=== PATIENT | female | born 1975 | race African-American/Black ===

== ENCOUNTER 2021-12-15 03:05 | Emergency (ER) | payer SELFPAY ==
[2021-12-15] MEDS ORDERED: Furosemide 20 MG Tab PO ONE (03:25)
[2021-12-15] MEDS ORDERED: Metoprolol Tartrate 25 MG Tab PO ONE (03:25)
[2021-12-15] MEDS ORDERED: Famotidine 20 MG/2 ML SDV IVPUSH ONE (03:58)
[2021-12-15] MEDS ORDERED: Alum Hydrox/Mag Hydrox/Simeth 30 ML, Lidocaine 2% 15 ML PO ONE ×2 (03:58)
[2021-12-15] MEDS ORDERED: Magnesium Sulfate/Water 2 GM in Premix Bag 1 BAG IV ONE (04:16)
[2021-12-15] MEDS ORDERED: Ondansetron 4 MG/2 ML SDV IVPUSH ONE (04:18)
[2021-12-15] MEDS ORDERED: Sodium Chloride 0.9% 100 ML IV ONE (05:25)
[2021-12-15] MEDS ORDERED: Iopamidol 755 Mg/ML 100 ML Bottle IVPUSH ONE (05:25)
== END 2021-12-15 07:15 | disposition home or self-care (01) ==
LOC: JD.ED 03:05
DX: R07.89 Other chest pain (principal); I11.0 Hypertensive heart disease with heart failure; I50.9 Heart failure, unspecified; Z79.899 Other long term (current) drug therapy
CPT/HCPCS: 36415; 71045; 71275; 80053; 83735; 84484; 85025; 85379; 85610; 93005; 96365; 96366; 96375; 99285; A9270; J2405; J3475; J3490; Q9967

== ENCOUNTER 2021-12-16 02:21 | Emergency (ER) | payer SELFPAY ==
[2021-12-16] MEDS ORDERED: Ondansetron 4 MG/2 ML SDV IVPUSH ONE (02:55)
[2021-12-16] MEDS ORDERED: Sodium Chloride 0.9% 1,000 ML IV SCH (03:00)
[2021-12-16] MEDS ORDERED: HYDROmorphone 0.5 MG/0.5 ML Syringe IVPUSH ONE ×2 (03:20→05:25)
[2021-12-16] MEDS ORDERED: Alum Hydrox/Mag Hydrox/Simeth 30 ML, Lidocaine 2% 15 ML PO STA ×2 (05:34)
== END 2021-12-16 05:57 | disposition home or self-care (01) ==
LOC: JD.ED 02:21
DX: R07.9 Chest pain, unspecified (principal); R10.9 Unspecified abdominal pain; R11.2 Nausea with vomiting, unspecified; Z20.822 Contact with and (suspected) exposure to COVID-19
CPT/HCPCS: 36415; 71046; 74177; 80053; 83735; 83880; 84484; 85025; 87635; 93005; 96361; 96374; 96375; 96376; 99285; A9270; J1170; J2405; J7030; 93010; 99283; U0002

== ENCOUNTER 2021-12-20 02:45 | Emergency (ER) | payer MEDICAID ==
[2021-12-20] MEDS ORDERED: Hyoscyamine 0.125 MG Tab.SL SL ONE ×2 (03:17→04:24)
[2021-12-20] MEDS ORDERED: Lactated Ringers 1,000 ML IV SCH (03:30)
[2021-12-20] MEDS ORDERED: Metoprolol Tartrate 5 MG/5 ML SDV IVPUSH ONE (03:32)
[2021-12-20] MEDS ORDERED: Metoprolol Tartrate 25 MG Tab PO ONE (05:00)
[2021-12-20] MEDS ORDERED: Morphine 2 MG/ML SYRINGE IVPUSH ONE (06:10)
[2021-12-20] MEDS ORDERED: LORazepam 2 MG/ML SDV IVPUSH ONE (06:19)
== END 2021-12-20 07:45 | disposition home or self-care (01) ==
LOC: JD.ED 02:45
DX: I49.3 Ventricular premature depolarization (principal); R10.33 Periumbilical pain; I11.0 Hypertensive heart disease with heart failure; I50.9 Heart failure, unspecified; Z79.899 Other long term (current) drug therapy
CPT/HCPCS: 36415; 74019; 80053; 84484; 85025; 93005; 96361; 96374; 96375; 99284; A9270; J2060; J3490; J7120

== ENCOUNTER 2021-12-24 16:50 | Emergency (ER) | payer MEDICAID ==
[2021-12-24] MEDS ORDERED: Sodium Chloride 0.9% 10 ML Syringe FLUSH PRN (17:00)
[2021-12-24] MEDS ORDERED: Metoprolol Tartrate 25 MG Tab PO ONE (17:15)
[2021-12-24] MEDS ORDERED: HYDROmorphone 0.5 MG/0.5 ML Syringe IVPUSH ONE (17:18)
[2021-12-24] MEDS ORDERED: Sodium Chloride 0.9% 10 ML Syringe FLUSH ONE (17:54)
[2021-12-24] MEDS ORDERED: Iopamidol 755 Mg/ML 100 ML Bottle IVPUSH ONE (17:54)
[2021-12-24] MEDS ORDERED: Sodium Chloride 0.9% 100 ML IV SCH (18:00)
[2021-12-24 18:09] LABS: ESTIMATED GFR 63 mL/min (>60)
[2021-12-24] MEDS ORDERED: Furosemide 40 MG/4 ML VIAL IVPUSH ONE (18:48)
[2021-12-24] MEDS ORDERED: Doxycycline 100 MG Cap PO ONE (18:48)
[2021-12-24] MEDS ORDERED: Apixaban 5 MG Tab PO ONE (18:48)
== END 2021-12-24 19:50 | disposition home or self-care (01) ==
LOC: JD.ED 16:50
DX: J18.9 Pneumonia, unspecified organism (principal); I26.94 Multiple subsegmental thrombotic pulmonary emboli without acute cor pulmonale; I11.0 Hypertensive heart disease with heart failure; I50.9 Heart failure, unspecified; Z79.01 Long term (current) use of anticoagulants
CPT/HCPCS: 36415; 71045; 71046; 71275; 80053; 83735; 83880; 84484; 85025; 85379; 86140; 93005; 96361; 96374; 96375; 99285; A9270; J1170; J1940; J3490; Q9967; 99284

== ENCOUNTER 2021-12-30 03:23 | Emergency (ER) | payer MEDICAID ==
[2021-12-30] MEDS ORDERED: Sodium Chloride 0.9% 10 ML Syringe FLUSH PRN (03:45)
[2021-12-30] MEDS ORDERED: cefTRIAXone 1 GM in Sodium Chloride 0.9% 100 ML IV ONE (03:47)
[2021-12-30] MEDS ORDERED: Warfarin 5 MG Tab PO ONE (03:47)
[2021-12-30] MEDS ORDERED: Enoxaparin 80 MG/0.8 ML Syringe SUBCUT ONE (03:48)
[2021-12-30] MEDS ORDERED: HYDROmorphone 0.5 MG/0.5 ML Syringe IVPUSH ONE (03:55)
[2021-12-30] MEDS ORDERED: Aspirin 81 MG Tab.Chew PO ONE (03:56)
[2021-12-30 04:20] LABS: ESTIMATED GFR 51 mL/min (>60)
[2021-12-30] MEDS ORDERED: methylPREDNISolone Sodium Succinate 125 MG/2 ML SDV IVPUSH PRN (05:51)
[2021-12-30] MEDS ORDERED: Famotidine 20 MG/2 ML SDV IVPUSH PRN (05:51)
[2021-12-30] MEDS ORDERED: diphenhydrAMINE 50 MG/ML SDV IVPUSH PRN (05:51)
[2021-12-30] MEDS ORDERED: EPINEPHrine 1 MG/ML SDV IM PRN (05:51)
[2021-12-30] MEDS ORDERED: Iron Polysaccharides Complex 150 MG Cap PO ONE (05:52)
[2021-12-30] MEDS ORDERED: Ondansetron 4 MG/2 ML SDV IVPUSH ONE (05:58)
[2021-12-30] MEDS ORDERED: Sodium Chloride 0.9% 10 ML Syringe FLUSH SCH (06:00)
== END 2021-12-30 06:58 | disposition home or self-care (01) ==
LOC: JD.ED 03:23
DX: U07.1 COVID-19 (principal); I26.94 Multiple subsegmental thrombotic pulmonary emboli without acute cor pulmonale; I11.0 Hypertensive heart disease with heart failure; I50.9 Heart failure, unspecified; D50.9 Iron deficiency anemia, unspecified; R11.2 Nausea with vomiting, unspecified; Z79.899 Other long term (current) drug therapy; Z79.01 Long term (current) use of anticoagulants; Z20.822 Contact with and (suspected) exposure to COVID-19
CPT/HCPCS: 36415; 71045; 80053; 82607; 82746; 83540; 83605; 83880; 84466; 84484; 85025; 85610; 86140; 87040; 87635; 93005; 96365; 96372; 96375; 99285; A9270; J0696; J1170; J1650; J2405; J3490; M0222; Q0222; 93010; 99284; U0002

== ENCOUNTER 2022-01-01 01:14 | Emergency (ER) | payer MEDICAID ==
[2022-01-01] MEDS ORDERED: Morphine 2 MG/ML SYRINGE IVPUSH ONE (03:34)
[2022-01-01] MEDS ORDERED: Ondansetron 4 MG/2 ML SDV IVPUSH ONE (03:34)
== END 2022-01-01 06:59 | disposition home or self-care (01) ==
LOC: JD.ED 01:14
DX: I26.94 Multiple subsegmental thrombotic pulmonary emboli without acute cor pulmonale (principal); I11.0 Hypertensive heart disease with heart failure; I50.9 Heart failure, unspecified; Z79.899 Other long term (current) drug therapy; Z79.01 Long term (current) use of anticoagulants
CPT/HCPCS: 36415; 80053; 83690; 84484; 85025; 85610; 93005; 96374; 96375; 99285; J2270; J2405; 93010; 99284

== ENCOUNTER 2022-01-02 02:22 | Emergency (ER) | payer MEDICAID ==
[2022-01-02] MEDS ORDERED: Alum Hydrox/Mag Hydrox/Simeth 30 ML, Lidocaine 2% 15 ML PO ONE ×2 (03:19)
[2022-01-02] MEDS ORDERED: Sucralfate 1 GM Tab PO ONE (04:48)
[2022-01-02] MEDS ORDERED: Pantoprazole 40 MG Tab.CR PO ONE (05:53)
== END 2022-01-02 07:01 | disposition home or self-care (01) ==
LOC: JD.ED 02:22
DX: I26.94 Multiple subsegmental thrombotic pulmonary emboli without acute cor pulmonale (principal); K21.9 Gastro-esophageal reflux disease without esophagitis; I11.0 Hypertensive heart disease with heart failure; I50.9 Heart failure, unspecified; Z79.01 Long term (current) use of anticoagulants; Z79.899 Other long term (current) drug therapy; Z86.16 Personal history of COVID-19
CPT/HCPCS: 36415; 84484; 85610; 93005; 99284; A9270; 93010

== ENCOUNTER 2022-01-04 13:14 | Emergency (ER) | payer MEDICAID ==
[2022-01-04 15:18] LABS: ESTIMATED GFR 51 mL/min (>60)
[2022-01-04] MEDS ORDERED: Acetaminophen/HYDROcodone 325-5 MG Tab PO ONE (15:50)
== END 2022-01-04 16:47 | disposition home or self-care (01) ==
LOC: JD.ED 13:14
DX: R07.89 Other chest pain (principal); R06.00 Dyspnea, unspecified; I11.0 Hypertensive heart disease with heart failure; I50.9 Heart failure, unspecified; Z79.899 Other long term (current) drug therapy; Z79.01 Long term (current) use of anticoagulants; Z86.16 Personal history of COVID-19
CPT/HCPCS: 36415; 71045; 80053; 83735; 83880; 84484; 85025; 85610; 93005; 99285; A9270

== ENCOUNTER 2022-01-05 01:08 | Emergency (ER) | payer MEDICAID ==
[2022-01-05] MEDS ORDERED: Acetaminophen/HYDROcodone 325-5 MG Tab PO STA (01:29)
[2022-01-05] MEDS ORDERED: Ondansetron 4 MG Tab.DIS PO ONE (03:05)
== END 2022-01-05 03:11 | disposition home or self-care (01) ==
LOC: JD.ED 01:08
DX: R07.89 Other chest pain (principal); R06.00 Dyspnea, unspecified; I11.0 Hypertensive heart disease with heart failure; I50.9 Heart failure, unspecified; Z79.899 Other long term (current) drug therapy; Z79.01 Long term (current) use of anticoagulants; Z86.16 Personal history of COVID-19
CPT/HCPCS: 99284; A9270

== ENCOUNTER 2022-01-09 04:13 | Emergency (ER) | payer SELFPAY ==
[2022-01-09 05:43] LABS: ESTIMATED GFR 51 mL/min (>60)
== END 2022-01-09 08:00 | disposition home or self-care (01) ==
LOC: JD.ED 04:13
DX: G89.29 Other chronic pain (principal); R07.89 Other chest pain; R10.9 Unspecified abdominal pain; I11.0 Hypertensive heart disease with heart failure; I50.9 Heart failure, unspecified; Z79.01 Long term (current) use of anticoagulants; Z79.899 Other long term (current) drug therapy; Z86.16 Personal history of COVID-19
CPT/HCPCS: 36415; 71045; 71045-26; 80053; 83690; 83735; 83880; 84484; 85025; 85610; 93005; 99285

== ENCOUNTER 2022-01-09 17:40 | Emergency (ER) | payer MEDICAID ==
[2022-01-09] MEDS ORDERED: Ondansetron 4 MG/2 ML SDV IM STA (21:16)
[2022-01-09] MEDS ORDERED: Furosemide 40 MG Tab PO ONE (22:18)
== END 2022-01-09 22:53 | disposition home or self-care (01) ==
LOC: JD.ED 17:40
DX: R11.2 Nausea with vomiting, unspecified (principal); I11.0 Hypertensive heart disease with heart failure; I50.9 Heart failure, unspecified; Z79.899 Other long term (current) drug therapy; Z79.01 Long term (current) use of anticoagulants; Z86.16 Personal history of COVID-19
CPT/HCPCS: 96372; 99284; A9270; J2405

== ENCOUNTER 2022-01-10 17:12 | Emergency (ER) | payer MEDICAID ==
[2022-01-10] MEDS ORDERED: Furosemide 40 MG Tab PO ONE (21:01)
[2022-01-10] MEDS ORDERED: Nitrofurantoin Monohydrate/Macrocrystalline 100 MG Cap PO STA (23:18)
== END 2022-01-10 23:45 | disposition home or self-care (01) ==
LOC: JD.ED 17:12 → SUPCPDRO 17:12 → JD.ED 23:45
DX: N39.0 Urinary tract infection, site not specified (principal); I11.0 Hypertensive heart disease with heart failure; I50.9 Heart failure, unspecified; Z86.16 Personal history of COVID-19
CPT/HCPCS: 81001; 87086; 99284; A9270

== ENCOUNTER 2022-01-12 00:55 | Emergency (ER) | payer MEDICAID ==
[2022-01-12] MEDS ORDERED: Furosemide 40 MG Tab PO ONE (04:52)
[2022-01-12 05:52] LABS: ESTIMATED GFR 51 mL/min (>60)
[2022-01-12] MEDS ORDERED: Acetaminophen 325 MG Tab PO ONE (06:19)
[2022-01-12] MEDS ORDERED: Ondansetron 4 MG Tab.DIS PO ONE (06:19)
== END 2022-01-12 07:40 | disposition home or self-care (01) ==
LOC: JD.ED 00:55
DX: I26.94 Multiple subsegmental thrombotic pulmonary emboli without acute cor pulmonale (principal); R11.2 Nausea with vomiting, unspecified; I11.0 Hypertensive heart disease with heart failure; I50.9 Heart failure, unspecified; Z79.01 Long term (current) use of anticoagulants; Z79.899 Other long term (current) drug therapy; Z86.16 Personal history of COVID-19
CPT/HCPCS: 36415; 71045; 80053; 83690; 83880; 84484; 85025; 85610; 93005; 99285; A9270

== ENCOUNTER 2022-01-15 14:58 | Emergency (ER) | payer MEDICAID | END 2022-01-15 18:00 | disposition home or self-care (01) | LOC: JD.ED 14:58 | DX: I11.0 Hypertensive heart disease with heart failure (principal); I50.9 Heart failure, unspecified; R07.89 Other chest pain; D50.9 Iron deficiency anemia, unspecified; R10.84 Generalized abdominal pain; Z79.899 Other long term (current) drug therapy | CPT/HCPCS: 36415; 80053; 83690; 83880; 84484; 85025; 93005; 99285 ==

== ENCOUNTER 2022-01-15 23:45 | Emergency (ER) | payer MEDICAID ==
[2022-01-16] MEDS ORDERED: Ondansetron 4 MG Tab.DIS PO ONE (00:40)
[2022-01-16] MEDS ORDERED: Alum Hydrox/Mag Hydrox/Simeth 30 ML, Lidocaine 2% 15 ML PO ONE ×2 (00:40)
== END 2022-01-16 00:58 | disposition home or self-care (01) ==
LOC: JD.ED 23:45
DX: K59.00 Constipation, unspecified (principal); I11.0 Hypertensive heart disease with heart failure; I50.9 Heart failure, unspecified; Z79.01 Long term (current) use of anticoagulants; Z86.16 Personal history of COVID-19
CPT/HCPCS: 99284; A9270

== ENCOUNTER 2022-01-16 22:07 | Emergency (ER) | payer MEDICAID ==
[2022-01-16] MEDS ORDERED: oxyCODONE ER 10 MG TAB.ER PO ONE (23:34)
[2022-01-16 23:37] LABS: ESTIMATED GFR 51 mL/min (>60)
== END 2022-01-17 01:04 | disposition home or self-care (01) ==
LOC: JD.ED 22:07
DX: G89.29 Other chronic pain (principal); R07.81 Pleurodynia; I11.0 Hypertensive heart disease with heart failure; I50.9 Heart failure, unspecified; Z79.01 Long term (current) use of anticoagulants; Z86.16 Personal history of COVID-19
CPT/HCPCS: 36415; 71045; 80053; 83880; 84484; 85025; 85610; 93005; 99285; A9270

== ENCOUNTER 2022-01-18 17:58 | Emergency (ER) | payer MEDICAID ==
[2022-01-18] MEDS ORDERED: Simethicone 80 MG Tab.Chew PO ONE (18:41)
[2022-01-18] MEDS ORDERED: Acetaminophen/Butalbital/Caffeine 325-50-40 MG Tab PO ONE (18:43)
== END 2022-01-18 20:05 | disposition home or self-care (01) ==
LOC: JD.ED 17:58
DX: R14.0 Abdominal distension (gaseous) (principal); I11.0 Hypertensive heart disease with heart failure; I50.9 Heart failure, unspecified; Z86.16 Personal history of COVID-19; Z79.01 Long term (current) use of anticoagulants; Z79.899 Other long term (current) drug therapy
CPT/HCPCS: 74018; 99284; A9270

== ENCOUNTER 2022-01-19 15:53 | Emergency (ER) | payer SELFPAY | END 2022-01-19 17:45 | LOC: JD.ED 15:53 | DX: Z53.21 Procedure and treatment not carried out due to patient leaving prior to being seen by health care provider (principal) ==

== ENCOUNTER 2022-01-22 22:03 | Emergency (ER) | payer MEDICAID ==
[2022-01-22] MEDS ORDERED: Sodium Chloride 0.9% 10 ML Syringe FLUSH PRN (22:59)
== END 2022-01-23 01:05 | disposition home or self-care (01) ==
LOC: JD.ED 22:03 → SUPCPDRO 22:03 → JD.ED 01-23 01:05
DX: R07.9 Chest pain, unspecified (principal); R10.9 Unspecified abdominal pain; G89.29 Other chronic pain; Z76.5 Malingerer [conscious simulation]; I11.0 Hypertensive heart disease with heart failure; I50.9 Heart failure, unspecified; Z86.16 Personal history of COVID-19; Z86.711 Personal history of pulmonary embolism; Z79.01 Long term (current) use of anticoagulants; Z79.899 Other long term (current) drug therapy
CPT/HCPCS: 36415; 71045; 71045-26; 80053; 83735; 83880; 84484; 85025; 85610; 85730; 93005; 93010; 99284; 99285

== ENCOUNTER 2022-01-26 10:32 | Emergency (ER) | payer MEDICAID ==
[2022-01-26] MEDS ORDERED: Adenosine 6 MG/2 ML SDV IVPUSH ONE (10:48)
[2022-01-26] MEDS ORDERED: Diltiazem 25 MG/5 ML SDV IVPUSH ONE (10:51)
[2022-01-26] MEDS ORDERED: Sodium Chloride 0.9% 1,000 ML IV SCH (11:00)
[2022-01-26] MEDS ORDERED: Diltiazem 125 MG in Sodium Chloride 0.9% 100 ML IV SCH (11:00)
[2022-01-26] MEDS ORDERED: Furosemide 40 MG/4 ML VIAL IVPUSH ONE (11:03)
[2022-01-26] MEDS ORDERED: Iopamidol 612 MG/ML 100 ML Bottle IVPUSH ONE (14:09)
[2022-01-26] MEDS ORDERED: Sodium Chloride 0.9% 10 ML Syringe FLUSH PRN (14:09)
== END 2022-01-26 17:40 | disposition home or self-care (01) ==
LOC: JD.ED 10:32
DX: I11.0 Hypertensive heart disease with heart failure (principal); I50.9 Heart failure, unspecified; I47.1 Supraventricular tachycardia; J90 Pleural effusion, not elsewhere classified; D50.8 Other iron deficiency anemias; B33.24 Viral cardiomyopathy; E03.9 Hypothyroidism, unspecified; Z79.899 Other long term (current) drug therapy; Z79.01 Long term (current) use of anticoagulants; Z86.16 Personal history of COVID-19
CPT/HCPCS: 36415; 71045; 74177; 80053; 81001; 82553; 82947; 83540; 83735; 83880; 84443; 84466; 84484; 85025; 85610; 86140; 93005; 96361; 96365; 96366; 96375; 99285; J0153; J1756; J1940; J3490; J7030; J7050; Q9967; 93010; 99284

== ENCOUNTER 2022-01-26 22:13 | Emergency (ER) | payer MEDICAID ==
[2022-01-26] MEDS ORDERED: Acetaminophen 325 MG Tab PO ONE (22:37)
[2022-01-26] MEDS ORDERED: Aspirin 81 MG Tab.Chew PO ONE (22:59)
[2022-01-26] MEDS ORDERED: HYDROmorphone 1 MG/ML Syringe IM ONE (23:26)
== END 2022-01-27 03:45 | disposition home or self-care (01) ==
LOC: JD.ED 22:13
DX: R07.9 Chest pain, unspecified (principal); G89.29 Other chronic pain; I11.0 Hypertensive heart disease with heart failure; I50.9 Heart failure, unspecified; Z86.16 Personal history of COVID-19; Z79.899 Other long term (current) drug therapy
CPT/HCPCS: 36415; 71045; 80053; 84484; 85025; 93005; 96372; 99285; A9270; J1170; 93010; 99284

== ENCOUNTER 2022-01-29 17:28 | Emergency (ER) | payer MEDICAID ==
[2022-01-29] MEDS ORDERED: Furosemide 40 MG/4 ML VIAL IVPUSH ONE (17:58)
[2022-01-29 19:00] LABS: ESTIMATED GFR 51 mL/min (>60)
[2022-01-29] MEDS ORDERED: Acetaminophen 325 MG Tab PO ONE (19:05)
[2022-01-29] MEDS ORDERED: Iopamidol 755 Mg/ML 100 ML Bottle IVPUSH ONE (19:15)
[2022-01-29] MEDS ORDERED: Sodium Chloride 0.9% 100 ML IV SCH (19:30)
== END 2022-01-29 21:15 | disposition home or self-care (01) ==
LOC: JD.ED 17:28
DX: I11.0 Hypertensive heart disease with heart failure (principal); I50.9 Heart failure, unspecified; I26.94 Multiple subsegmental thrombotic pulmonary emboli without acute cor pulmonale; Z79.899 Other long term (current) drug therapy; Z86.16 Personal history of COVID-19
CPT/HCPCS: 36415; 71275; 80053; 83880; 84484; 85007; 85027; 85610; 93005; 96374; 99285; A9270; J1940; Q9967

== ENCOUNTER 2022-01-31 15:17 | Emergency (ER) | payer MEDICAID ==
[2022-01-31] MEDS ORDERED: Furosemide 40 MG/4 ML VIAL IVPUSH ONE (16:49)
[2022-01-31] MEDS ORDERED: Potassium Chloride 20 MEQ Tab.ER PO ONE (16:49)
== END 2022-01-31 18:56 | disposition home or self-care (01) ==
LOC: JD.ED 15:17
DX: I26.94 Multiple subsegmental thrombotic pulmonary emboli without acute cor pulmonale (principal); I11.0 Hypertensive heart disease with heart failure; I50.9 Heart failure, unspecified; Z79.899 Other long term (current) drug therapy; Z79.01 Long term (current) use of anticoagulants; Z86.16 Personal history of COVID-19
CPT/HCPCS: 36415; 84484; 93005; 96374; 99285; A9270; J1940; 93010; 99284

== ENCOUNTER 2022-02-03 11:05 | Emergency (ER) | payer MEDICAID ==
[2022-02-03] MEDS ORDERED: Sacubitril/Valsartan 1 EACH Tablet PO SCH (14:45)
[2022-02-03] MEDS ORDERED: Lidocaine 4% 1 each Patch TOP PRN (15:32)
[2022-02-03 15:45] LABS: ESTIMATED GFR 63 mL/min (>60)
== END 2022-02-03 18:50 | disposition home or self-care (01) ==
LOC: JD.ED 11:05
DX: R07.89 Other chest pain (principal); R04.2 Hemoptysis; I11.0 Hypertensive heart disease with heart failure; I50.9 Heart failure, unspecified; Z86.16 Personal history of COVID-19; Z79.01 Long term (current) use of anticoagulants; Z79.899 Other long term (current) drug therapy
CPT/HCPCS: 36415; 71045; 80053; 83605; 83880; 85007; 85027; 85610; 93005; 99285; A9270; 93010; 99283

== ENCOUNTER 2022-02-05 20:55 | Emergency (ER) | payer MEDICAID ==
[2022-02-05] MEDS ORDERED: Sacubitril/Valsartan 1 EACH Tablet PO SCH (22:15)
[2022-02-05] MEDS ORDERED: Lidocaine 4% 1 each Patch TOP ONE (22:33)
== END 2022-02-06 00:55 | disposition home or self-care (01) ==
LOC: JD.ED 20:55
DX: R07.89 Other chest pain (principal); F41.9 Anxiety disorder, unspecified; I11.0 Hypertensive heart disease with heart failure; I50.9 Heart failure, unspecified; Z86.16 Personal history of COVID-19; Z79.01 Long term (current) use of anticoagulants; Z79.899 Other long term (current) drug therapy
CPT/HCPCS: 36415; 84484; 93005; 99285; A9270; 93010; 99284

== ENCOUNTER 2022-02-09 10:44 | Emergency (ER) | payer MEDICAID ==
[2022-02-09] MEDS ORDERED: Furosemide 40 MG/4 ML VIAL IVPUSH ONE (11:14)
[2022-02-09] MEDS ORDERED: Acetaminophen 325 MG Tab PO ONE (11:14)
== END 2022-02-09 13:56 | disposition home or self-care (01) ==
LOC: JD.ED 10:44
DX: B33.24 Viral cardiomyopathy (principal); I11.0 Hypertensive heart disease with heart failure; I50.9 Heart failure, unspecified; F41.9 Anxiety disorder, unspecified; D64.9 Anemia, unspecified
CPT/HCPCS: 36415; 71045; 80053; 83880; 84484; 85025; 85610; 93005; 96374; 99285; A9270; J1940

== ENCOUNTER 2022-02-11 00:10 | Emergency (ER) | payer MEDICAID ==
[2022-02-11] MEDS ORDERED: Ondansetron 4 MG/2 ML SDV IVPUSH ONE (04:10)
[2022-02-11] MEDS ORDERED: Sodium Chloride 0.9% 1,000 ML IV ONE (04:10)
[2022-02-11 05:39] LABS: ESTIMATED GFR 43 mL/min (>60)
[2022-02-11] MEDS ORDERED: Magnesium Sulfate/Water 2 GM in Premix Bag 1 BAG IV ONE (06:01)
== END 2022-02-11 08:25 | disposition home or self-care (01) ==
LOC: JD.ED 00:10
DX: A08.4 Viral intestinal infection, unspecified (principal); I11.0 Hypertensive heart disease with heart failure; I50.9 Heart failure, unspecified; D50.8 Other iron deficiency anemias; Z79.899 Other long term (current) drug therapy; Z79.01 Long term (current) use of anticoagulants; Z86.16 Personal history of COVID-19; Z20.822 Contact with and (suspected) exposure to COVID-19
CPT/HCPCS: 36415; 80053; 83690; 83735; 84484; 85007; 85027; 87635; 93005; 96361; 96365; 96366; 96375; 99285; J2405; J3475; J7030; U0002

== ENCOUNTER 2022-02-12 16:28 | Emergency (ER) | payer MEDICAID | END 2022-02-12 19:10 | disposition home or self-care (01) | LOC: JD.ED 16:28 | DX: G89.29 Other chronic pain (principal); R07.9 Chest pain, unspecified; R10.84 Generalized abdominal pain; I11.0 Hypertensive heart disease with heart failure; I50.9 Heart failure, unspecified; K21.9 Gastro-esophageal reflux disease without esophagitis; Z79.899 Other long term (current) drug therapy; Z79.01 Long term (current) use of anticoagulants; Z86.16 Personal history of COVID-19 | CPT/HCPCS: 93005; 99285 ==

== ENCOUNTER 2022-02-14 18:57 | Emergency (ER) | payer SELFPAY | END 2022-02-14 22:22 | disposition home or self-care (01) | LOC: JD.ED 18:57 → SUPCPDRO 18:57 → JD.ED 22:22 | DX: Z71.1 Person with feared health complaint in whom no diagnosis is made (principal); I11.0 Hypertensive heart disease with heart failure; I50.9 Heart failure, unspecified; K21.9 Gastro-esophageal reflux disease without esophagitis; Z79.899 Other long term (current) drug therapy; Z79.01 Long term (current) use of anticoagulants; Z86.16 Personal history of COVID-19 | CPT/HCPCS: 93005; 99285 ==

== ENCOUNTER 2022-02-18 15:21 | Emergency (ER) | payer SELFPAY ==
[2022-02-18 17:08] LABS: ESTIMATED GFR 57 mL/min (>60)
[2022-02-18] MEDS ORDERED: Aspirin 81 MG Tab.Chew PO ONE (17:26)
[2022-02-18] MEDS ORDERED: Acetaminophen 325 MG Tab PO ONE (17:26)
[2022-02-18] MEDS ORDERED: Morphine 2 MG/ML SYRINGE IM ONE (17:54)
== END 2022-02-18 20:00 | disposition home or self-care (01) ==
LOC: SUPCPDRO 15:21 → JD.ED 15:21
DX: I11.0 Hypertensive heart disease with heart failure (principal); I50.9 Heart failure, unspecified; I42.9 Cardiomyopathy, unspecified; K21.9 Gastro-esophageal reflux disease without esophagitis; Z79.899 Other long term (current) drug therapy
CPT/HCPCS: 36415; 71045; 80053; 83880; 84484; 85025; 93005; 96372; 99285; A9270; J2270; 93010; 99284

== ENCOUNTER 2022-02-21 11:54 | Emergency (ER) | payer SELFPAY ==
[2022-02-21] MEDS ORDERED: Acetaminophen 325 MG Tab PO ONE (13:24)
== END 2022-02-21 13:47 | disposition home or self-care (01) ==
LOC: JD.ED 11:54
DX: R10.84 Generalized abdominal pain (principal); I11.0 Hypertensive heart disease with heart failure; I50.9 Heart failure, unspecified; M79.671 Pain in right foot; Z79.899 Other long term (current) drug therapy; Z79.01 Long term (current) use of anticoagulants; Z86.16 Personal history of COVID-19
CPT/HCPCS: 73630; 93005; 99285; A9270

== ENCOUNTER 2022-02-22 23:31 | Emergency (ER) | payer SELFPAY ==
[2022-02-22] MEDS ORDERED: Ketorolac 60 MG/2 ML SDV IM ONE (23:46)
== END 2022-02-23 00:12 | disposition home or self-care (01) ==
LOC: JD.ED 23:31
DX: R07.9 Chest pain, unspecified (principal); I11.0 Hypertensive heart disease with heart failure; I50.9 Heart failure, unspecified; K21.9 Gastro-esophageal reflux disease without esophagitis; F41.9 Anxiety disorder, unspecified; Z79.899 Other long term (current) drug therapy
CPT/HCPCS: 96372; 99285; J1885; 93010; 99283

== ENCOUNTER 2022-02-23 10:03 | Emergency (ER) | payer SELFPAY ==
[2022-02-23] MEDS ORDERED: Ondansetron 4 MG Tab.DIS PO ONE (11:14)
[2022-02-23] MEDS ORDERED: Dicyclomine 10 MG Cap PO ONE (11:15)
== END 2022-02-23 13:30 | disposition home or self-care (01) ==
LOC: JD.ED 10:03
DX: R11.2 Nausea with vomiting, unspecified (principal); I11.0 Hypertensive heart disease with heart failure; I50.9 Heart failure, unspecified; Z79.899 Other long term (current) drug therapy; Z79.01 Long term (current) use of anticoagulants; Z86.16 Personal history of COVID-19
CPT/HCPCS: 99284; A9270; 99283

== ENCOUNTER 2022-02-24 14:18 | Emergency (ER) | payer SELFPAY | END 2022-02-24 17:12 | LOC: JD.ED 14:18 | DX: Z53.21 Procedure and treatment not carried out due to patient leaving prior to being seen by health care provider (principal) ==

== ENCOUNTER 2022-02-27 14:54 | Emergency (ER) | payer SELFPAY ==
[2022-02-27] MEDS ORDERED: Sodium Chloride 0.9% 10 ML Syringe FLUSH PRN (15:42)
[2022-02-27] MEDS ORDERED: Ondansetron 4 MG Tab.DIS PO ONE (15:46)
[2022-02-27] MEDS ORDERED: Ketorolac 30 MG/ML SDV IM ONE (18:01)
== END 2022-02-27 18:43 | disposition home or self-care (01) ==
LOC: JD.ED 14:54
DX: R07.89 Other chest pain (principal); R00.0 Tachycardia, unspecified; K21.9 Gastro-esophageal reflux disease without esophagitis; I11.0 Hypertensive heart disease with heart failure; I50.9 Heart failure, unspecified; Z86.16 Personal history of COVID-19; Z79.01 Long term (current) use of anticoagulants; Z79.899 Other long term (current) drug therapy
CPT/HCPCS: 36415; 71045; 80048; 84484; 85025; 93005; 96372; 99284; A9270; 93010

== ENCOUNTER 2022-03-01 12:11 | Emergency (ER) | payer SELFPAY ==
[2022-03-01] MEDS ORDERED: Ondansetron 4 MG Tab.DIS PO ONE (14:08)
[2022-03-01] MEDS ORDERED: diphenhydrAMINE 50 MG/ML SDV IM ONE (14:27)
[2022-03-01] MEDS ORDERED: Metoclopramide 10 MG/2 ML SDV IM ONE (14:27)
== END 2022-03-01 15:07 | disposition home or self-care (01) ==
LOC: JD.ED 12:11
DX: R10.84 Generalized abdominal pain (principal); I11.0 Hypertensive heart disease with heart failure; I50.9 Heart failure, unspecified; K21.9 Gastro-esophageal reflux disease without esophagitis; Z79.899 Other long term (current) drug therapy; Z79.01 Long term (current) use of anticoagulants; Z86.16 Personal history of COVID-19
CPT/HCPCS: 96372; 99283; A9270-GY; J1200; J2765

== ENCOUNTER 2022-03-03 13:51 | Emergency (ER) | payer SELFPAY ==
[2022-03-03] MEDS ORDERED: Sodium Chloride 0.9% 10 ML Syringe FLUSH PRN (15:08)
[2022-03-03 16:52] LABS: ESTIMATED GFR 37 mL/min (>60)
[2022-03-03] MEDS ORDERED: diphenhydrAMINE 50 MG/ML SDV IVPUSH ONE (18:32)
[2022-03-03] MEDS ORDERED: Metoclopramide 10 MG/2 ML SDV IVPUSH ONE (18:32)
== END 2022-03-03 19:07 | disposition home or self-care (01) ==
LOC: JD.ED 13:51
DX: R10.84 Generalized abdominal pain (principal); R06.02 Shortness of breath; I11.0 Hypertensive heart disease with heart failure; I50.9 Heart failure, unspecified; Z79.899 Other long term (current) drug therapy; Z79.01 Long term (current) use of anticoagulants; Z86.16 Personal history of COVID-19
CPT/HCPCS: 36415; 71045; 80053; 83735; 83880; 84484; 85025; 86140; 93005; 96374; 96375; 99284; J1200; J2765; J3490; 93010

== ENCOUNTER 2022-03-05 11:43 | Emergency (ER) | payer SELFPAY ==
[2022-03-05] MEDS ORDERED: Sodium Chloride 0.9% 10 ML Syringe FLUSH PRN (11:54)
[2022-03-05] MEDS ORDERED: Loperamide 2 MG Cap PO ONE (12:13)
[2022-03-05] MEDS ORDERED: Dicyclomine 10 MG Cap PO ONE (12:13)
[2022-03-05] MEDS ORDERED: Ondansetron 4 MG/2 ML SDV IVPUSH ONE (12:47)
[2022-03-05 13:23] LABS: ESTIMATED GFR 43 mL/min (>60)
== END 2022-03-05 14:40 | disposition home or self-care (01) ==
LOC: JD.ED 11:43
DX: R07.89 Other chest pain (principal); R79.0 Abnormal level of blood mineral; I11.0 Hypertensive heart disease with heart failure; I50.9 Heart failure, unspecified; K21.9 Gastro-esophageal reflux disease without esophagitis; F41.9 Anxiety disorder, unspecified; D64.9 Anemia, unspecified; Z79.01 Long term (current) use of anticoagulants; Z79.899 Other long term (current) drug therapy
CPT/HCPCS: 36415; 71045; 80053; 83735; 83880; 84484; 85025; 85610; 85730; 93005; 96374; 99285; A9270; J2405; J3490; 93010; 99284